=== PATIENT | female | born 1980 | race Caucasian/White ===

== ENCOUNTER 2016-04-19 07:45 | Emergency (ER) | payer MEDICAID ==
[~2016-04-19] VITALS: Ht 149.9 cm; Wt 52.2 kg
[~2016-04-19 07:45] MED LIST: VENTOLIN H0.09 MG/Ac IH
[2016-04-19 07:54] VITALS: BP 96/60
--- NOTE | 2016-04-19 07:56 | NUR ---
PT AMBULATED TO ER BED 02.
--- NOTE | 2016-04-19 08:03 | NUR ---
PATIENT PRESENTS TO ED DUE TO TOOTHACHE X 3 DAYS . DENIES N/V/D; SKIN IS PINK/WARM/DRY; AAOX4 WITH EVEN AND STEADY GAIT; LUNGS CLEAR BL; HR EVEN AND REGULAR; PT DENIES ANY FEVER, CP, OR COUGH AT THIS TIME; PATIENT STATES PAIN OF 4/10 AT THIS TIME; PATIENT POSITIONED FOR COMFORT; HOB ELEVATED; BEDRAILS UP X2; BED DOWN. ER MD MADE AWARE OF PT STATUS.HX BRONCHITIS AND EPILEPSY
[2016-04-19 09:01] VITALS: BP 96/60
--- NOTE | 2016-04-19 09:02 | NUR ---
Patient discharged with v/s stable. Written and verbal after care instructions given and explained. Patient alert, oriented and verbalized understanding of instructions. Ambulatory with steady gait. All questions addressed prior to discharge. ID band removed. Patient advised to follow up with PMD. Rx of MOTRIN, PENICILLIN VK given. Patient educated on indication of medication including possible reaction and side effects. Opportunity to ask questions provided and answered.
== END 2016-04-19 09:00 | disposition home or self-care (01) ==
LOC: MED 07:51
DX: K08.89 Other specified disorders of teeth and supporting structures (principal); R68.84 Jaw pain; J45.909 Unspecified asthma, uncomplicated; Z88.1 Allergy status to other antibiotic agents; Z88.6 Allergy status to analgesic agent; Z88.5 Allergy status to narcotic agent

== ENCOUNTER 2016-06-20 08:52 | Emergency (ER) | payer MEDICAID ==
[~2016-06-20] VITALS: Ht 154.9 cm; Wt 51.5 kg
[2016-06-20 09:04] VITALS: BP 119/75
--- NOTE | 2016-06-20 09:21 | NUR ---
35/F PRESENT TO ER C/O ABDOMINAL PAIN x 2 DAYS. PAIN 9/10 GENERALIZED PAIN. PT STATES SHE WAS TAKING OTC MOTRIN PRIOR TO ER VISIT. PT STATES NAUSEA BUT DENIES VOMITING, DIARRHEA OR CONSTIPAITION. VSS, AAOx4, PREELA, BREATHING EVEN AND UNLABORED. ERMD NOTIFIED OF PATIENT STATUS.
[2016-06-20] MEDS ORDERED: NACL 0.9% 500 ML IV ONE (09:26)
--- NOTE | 2016-06-20 09:26 | NUR ---
Patient being evaluated by physician at bedside.
[2016-06-20] MEDS ORDERED: KETOROLAC 30 MG/ML VIAL IVP ONE (09:30)
[2016-06-20] MEDS ORDERED: ONDANSETRON 4 MG/2 ML VIAL IVP ONE (09:30)
--- NOTE | 2016-06-20 09:31 | NUR ---
IV established to left AC 20 gauge, flushed with 10cc of normal saline, patient. No signs of rednes, swelling or infiltration. Pt tolerated well. Labs drawn and sent to lab.
--- NOTE | 2016-06-20 09:46 | NUR ---
Patient placed on professional system administrator, pulse oximetry and blood pressure monitoring. VSS. Pt provided with warm blanket and pillow. Bed placed in lowest position, both side rails up. Pt placed in position of comfort. Lights dimmed in the room. Will continue to monitor patient.
--- NOTE | 2016-06-20 09:48 | NUR ---
Ultrasound at bedside.
[2016-06-20] MEDS ORDERED: ALUMINUM HYD/MAG/SIMETHICONE 30 ML UDC PO ONE (10:10)
[2016-06-20] MEDS ORDERED: DICYCLOMINE HCL LIQUID 10 MG/5 ML UDC PO ONE (10:10)
[2016-06-20] MEDS ORDERED: LIDOCAINE VISCOUS 2% 20 ML UDC PO ONE (10:10)
--- NOTE | 2016-06-20 10:25 | NUR ---
Pt found resting comfortably at this time. VSS. Patient appears calm and in no distress.
--- NOTE | 2016-06-20 10:34 | NUR ---
Dr. Garvey re-evaluating patient at bedside.
[2016-06-20] MEDS ORDERED: fentaNYL 0.05 MG/ML VIAL IVP ONE (10:45)
--- NOTE | 2016-06-20 11:29 | NUR ---
Patient appears to be resting comfortably in bed. Vital Signs within normal limits. Respirations even and unlabored.
--- NOTE | 2016-06-20 11:55 | NUR ---
IV removed, catheter intact and site benign. Applied folded 4x4 gauze and tape to stop bleeding.
--- NOTE | 2016-06-20 12:03 | NUR ---
Patient discharged with v/s stable. Written and verbal after care instructions given and explained. Patient alert, oriented and verbalized understanding of instructions. Ambulatory with steady gait. All questions addressed prior to discharge. ID band removed. Patient advised to follow up with PMD. Rx of ZOFRAN, TRAMADOL, AND OMEPRAZOLE given. Patient educated on indication of medication including possible reaction and side effects. Opportunity to ask questions provided and answered.
[2016-06-20 12:04] VITALS: BP 120/72
== END 2016-06-20 12:03 | disposition home or self-care (01) ==
LOC: MED 08:52
DX: K29.70 Gastritis, unspecified, without bleeding (principal); N23 Unspecified renal colic; J45.909 Unspecified asthma, uncomplicated; Z88.6 Allergy status to analgesic agent; Z88.5 Allergy status to narcotic agent
CPT/HCPCS: 36415; 76705; 80053; 81002; 81025; 83690; 85025; 93005; 96361; 96374; 96375; 99285; J1885; J2405; J3010; J7030; Q0092

== ENCOUNTER 2018-02-17 07:59 | Emergency (ER) | payer MEDICAID ==
[~2018-02-17] VITALS: Ht 152.4 cm; Wt 55.8 kg
[~2018-02-17 07:59] MED LIST changes: +ALBU0.0912 IH; -VENTOLIN H0.09 MG/Ac IH
[2018-02-17 08:05] VITALS: BP 135/85
[2018-02-17] MEDS: LORazepam 2 MG/ML VIAL IM ONE (08:43)
[2018-02-17 09:19] VITALS: BP 110/68
== END 2018-02-17 09:18 | disposition home or self-care (01) ==
LOC: MED 07:59
DX: F41.9 Anxiety disorder, unspecified (principal); R03.0 Elevated blood-pressure reading, without diagnosis of hypertension; J45.909 Unspecified asthma, uncomplicated; Z88.6 Allergy status to analgesic agent; Z79.899 Other long term (current) drug therapy
CPT/HCPCS: 93005; 96372; 99283; J2060

== ENCOUNTER 2018-06-02 01:37 | Emergency (ER) | payer MEDICAID ==
[~2018-06-02] VITALS: Ht 149.9 cm; Wt 52.2 kg
[2018-06-02 01:42] VITALS: BP 121/74
--- NOTE | 2018-06-02 01:45 | NUR ---
PT AMBULATED TO LOBBY WITH VSS.
--- NOTE | 2018-06-02 02:05 | NUR ---
PT AMBULATED TO BED #1.
--- NOTE | 2018-06-02 02:05 | NUR ---
PT AMBULATED TO THE RESTROOM AND GAVE A U/A SPECIMEN
--- NOTE | 2018-06-02 02:27 | NUR ---
PT PRESENTS TO ED WITH C/O RIGHT SECOND DIGIT EDEMA. STATES HIT HAND AND BENT BACKWARDS. ALSO C/O NUMBNESS. 09/29 PAIN. AAO X4, GCS 15, RSPIATIONS EVEN AND UNLABORED. SKIN WARM/PINK/DRY, +PMSC. RT DIGIT EDEMA NOTED. VSS, STATED PAIN 09/29. WILL CONTINEU TO MONITOR
[2018-06-02 05:15] VITALS: BP 137/92
--- NOTE | 2018-06-02 05:15 | NUR ---
Patient discharged with v/s stable. Written and verbal after care instructions given and explained. Patient alert, oriented and verbalized understanding of instructions. Ambulatory with steady gait. All questions addressed prior to discharge. ID band removed. Patient advised to follow up with PMD. Rx of morco 5 mg, motrin 800 mg given. Patient educated on indication of medication including possible reaction and side effects. Opportunity to ask questions provided and answered.
== END 2018-06-02 05:15 | disposition home or self-care (01) ==
LOC: MED 01:37
DX: L98.9 Disorder of the skin and subcutaneous tissue, unspecified (principal); J45.909 Unspecified asthma, uncomplicated; Z79.899 Other long term (current) drug therapy; Z88.6 Allergy status to analgesic agent; Z88.8 Allergy status to other drugs, medicaments and biological substances
CPT/HCPCS: 29130; 36415; 73130; 81025; 84550; 99284; Q0092

== ENCOUNTER 2019-01-16 07:42 | Emergency (ER) | payer MEDICAID ==
[~2019-01-16] VITALS: Ht 149.9 cm; Wt 51.3 kg
[2019-01-16 07:45] VITALS: BP 129/88
--- NOTE | 2019-01-16 07:45 | NUR ---
PT TAKEN TO BED 3.
--- NOTE | 2019-01-16 08:09 | NUR ---
PATIENT PRESENTS TO ED WANTING TO BE CHECKED FOR UTI. PT STATES THAT SHE HAD BURNING UPON URINATING AND SWELLING OF VULVA POST INTERCOURSE A MONTH AGO. -DISCHARGE, -BLOOD IN URINE, -ITCHINESS. SKIN IS PINK/WARM/DRY; AAOX4 WITH EVEN AND STEADY GAIT; LUNGS CLEAR BL; HR EVEN AND REGULAR; PT DENIES ANY FEVER, CP, SOB, OR COUGH AT THIS TIME; PATIENT STATES PAIN OF 0/10 AT THIS TIME; VSS; PATIENT POSITIONED FOR COMFORT; HOB ELEVATED; BEDRAILS UP X2; BED DOWN. ER MD MADE AWARE OF PT STATUS. PMH: EPILEPSY, BRONCHITIS MEDS: VENTOLIN INHALER
--- NOTE | 2019-01-16 08:10 | NUR ---
PATIENT WAS ABLE TO VOID. URINE COLLECTED AT THIS TIME.
[2019-01-16] MEDS ORDERED: cefTRIAXone 1,000 MG in LIDOCAINE 1% 2.1 ML IM ONE (08:15)
[2019-01-16] MEDS ORDERED: DOXYCYCLINE 100 MG CAP PO ONE (08:15)
[2019-01-16] MEDS ORDERED: cefTRIAXone 1,000 MG VIAL ONE ×2 (08:38→08:51)
[2019-01-16 08:41] LABS: BILIRUBIN,URINE NEGATIVE (NEGATIVE); BLOOD, URINE 3+ (NEGATIVE); COLOR,URINE YELLOW (YELLOW); LEUKOCYTE ESTERASE ,URINE NEGATIVE (NEGATIVE); NITRITE, URINE POSITIVE (NEGATIVE); UGLUCOSE NEGATIVE (NEGATIVE)
[2019-01-16 08:43] LABS: APPEARANCE,URINE HAZY (CLEAR)
[2019-01-16] MEDS ORDERED: LIDOCAINE MPF 1% 5 ML ONE (08:45)
[2019-01-16 09:33] LABS: BARBITURATE, URINE NEG. ng/ml (NEG <=200); BENZODIAZEPINE, URINE NEG. ng/mL (NEG <=200); CANNABINOID, URINE NEG. ng/mL (NEG <=50); COCAINE, URINE NEG. ng/mL (NEG <=300); OPIATE, URINE NEG. ng/mL (NEG <=2000); PHENCYCLIDINE SCREEN,URINE NEG. ng/mL (NEG <=25)
--- NOTE | 2019-01-16 09:35 | NUR ---
FOLLOWED UP WITH LAB ABOUT UDS. NOT CURRENTLY BEING PROCESSED, BUT WILL BE DONE NOW.
[2019-01-16 09:51] VITALS: BP 129/88
--- NOTE | 2019-01-16 09:51 | NUR ---
Patient discharged with v/s stable. Written and verbal after care instructions given and explained. Patient alert, oriented and verbalized understanding of instructions. Ambulatory with steady gait. All questions addressed prior to discharge. ID band removed. Patient advised to follow up with PMD. Rx of LEVAQUIN given. Patient educated on indication of medication including possible reaction and side effects. Opportunity to ask questions provided and answered.
[2019-01-18 06:08] LABS: CHLAMYDIA TRACHOMATIS AMP DNA Positive (Negative)
--- NOTE | 2019-01-19 15:09 | NUR ---
Urine results shown to Dr. Antunez and RX for Doxycycline 100mg BID x14 days received to give to patient. Pt called and no answer. Left voicemail message. Pt advised to call ED so patient may be updated with results.
== END 2019-01-16 09:50 | disposition home or self-care (01) ==
LOC: MED 07:42
DX: N30.90 Cystitis, unspecified without hematuria (principal); J45.909 Unspecified asthma, uncomplicated; Z90.49 Acquired absence of other specified parts of digestive tract; Z98.890 Other specified postprocedural states; Z88.6 Allergy status to analgesic agent; Z88.5 Allergy status to narcotic agent; Z88.8 Allergy status to other drugs, medicaments and biological substances; Z79.899 Other long term (current) drug therapy
CPT/HCPCS: 36415; 80305; 81001; 81025; 87086; 87186; 87491; 96372; 99283; J0696; J2001

== ENCOUNTER 2019-07-04 20:20 | Emergency (ER) | payer MEDICAID ==
[~2019-07-04] VITALS: Ht 149.9 cm; Wt 53.1 kg
[2019-07-04 20:26] VITALS: BP 104/76
--- NOTE | 2019-07-04 20:40 | NUR ---
PT TAKEN TO BED 6
--- NOTE | 2019-07-04 20:42 | NUR ---
Dr. Garvey examining patient.
--- NOTE | 2019-07-04 20:45 | NUR ---
38 YO F C/C OF R EAR PAIN X5 DAYS. STATES THAT SHE FELT SOMETHING "POP" IN HER EAR ON THURSDAY AND HAS HAD WHITE/BLOODY DISCHARGE SINCE THEN. PT STATES THAT SHE CANNOT HEAR OUT OF R EAR. DENIES TRAUMA OR INJURY TO THE SITE. PT STATES SHE HAD A FEVER THAT DAY. NO VISIBLE REDNESS, SWELLING, OR DRAINAGE TO THE SITE. PT STATE SHE TOOK 600 MG OF IBUPROFEN 30 MIN AGO FOR PAIN. DENIES TRAVEL, SOB, COUGH. ALLERGIES: TYLENOL MED HX: EPILEPSY NO RX
--- NOTE | 2019-07-04 21:10 | NUR ---
Patient discharged with v/s stable. Written and verbal after care instructions given and explained. Patient alert, oriented and verbalized understanding of instructions. Ambulatory with steady gait. All questions addressed prior to discharge. ID band removed. Patient advised to follow up with PMD. Rx of CIPRODEX OTIC SUSPENSION, MOTRIN given. Patient educated on indication of medication including possible reaction and side effects. Opportunity to ask questions provided and answered.
== END 2019-07-04 21:10 | disposition home or self-care (01) ==
LOC: MED 20:20
DX: H60.91 Unspecified otitis externa, right ear (principal); Z90.49 Acquired absence of other specified parts of digestive tract; Z98.890 Other specified postprocedural states; Z79.899 Other long term (current) drug therapy; Z88.6 Allergy status to analgesic agent; Z88.5 Allergy status to narcotic agent; Z88.8 Allergy status to other drugs, medicaments and biological substances
CPT/HCPCS: 99283

== ENCOUNTER 2019-12-12 13:00 | Emergency (ER) | payer MEDICAID ==
[~2019-12-12] VITALS: Ht 149.9 cm; Wt 48.5 kg
[2019-12-12 13:04] VITALS: BP 145/100
--- NOTE | 2019-12-12 13:06 | NUR ---
38/F presents to ED with complaints of bilateral flank pain x2 days. Pt states the pain has been on going to 2 years but has worsened the last two days. Pt complains of trouble getting out of bed. Patient c/o 8/10 pain, sharp pain. Pt denies fever or chills. Denies s/s of UTI. Pt states she was seen last year at [place] for kidney infections but did not follow up. Pt also reports having hx of epilepsy and has not been on medication since she was 17 years old. Last seizure was last year while with her daughter.
--- NOTE | 2019-12-12 13:06 | NUR ---
Pt taken to bed 6.
--- NOTE | 2019-12-12 13:10 | NUR ---
DR. VIDAL EVALUATING PATIENT AT BEDSIDE.
--- NOTE | 2019-12-12 13:24 | NUR ---
RAD AT BEDSIDE
--- NOTE | 2019-12-12 13:35 | NUR ---
PT TAKEN TO X-RAY VIA W/C.
--- NOTE | 2019-12-12 13:47 | NUR ---
PT RETURNED FROM XRAY VIA WHEELCHAIR
[2019-12-12 14:25] VITALS: BP 145/100
--- NOTE | 2019-12-12 14:25 | NUR ---
Patient discharged with v/s stable. Written and verbal after care instructions given and explained. Patient alert, oriented and verbalized understanding of instructions. Ambulatory with steady gait. All questions addressed prior to discharge. ID band removed. Patient advised to follow up with PMD. Rx of Miralax, Mineral Oil, Motrin, Tramadol 50mg given. Patient educated on indication of medication including possible reaction and side effects. Opportunity to ask questions provided and answered.
== END 2019-12-12 14:25 | disposition home or self-care (01) ==
LOC: MED 13:00
DX: K59.00 Constipation, unspecified (principal); M54.9 Dorsalgia, unspecified; J45.909 Unspecified asthma, uncomplicated; F17.200 Nicotine dependence, unspecified, uncomplicated; G40.909 Epilepsy, unspecified, not intractable, without status epilepticus; Z79.899 Other long term (current) drug therapy; Z88.5 Allergy status to narcotic agent; Z88.6 Allergy status to analgesic agent; Z88.8 Allergy status to other drugs, medicaments and biological substances
CPT/HCPCS: 74022; 81002; 81025; 99283